=== PATIENT | female | born 1950 | race Caucasian/White ===

== ENCOUNTER 2016-07-01 10:38 | Emergency (ER) | payer OTHER, MEDICAID ==
[~2016-07-01] VITALS: Ht 167.6 cm; Wt 115.7 kg
[2016-07-01 10:56] VITALS: BP 177/78
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
--- NOTE | 2016-07-01 11:03 | NUR ---
XRAY AT BEDSIDE FOR RIGHT KNEE
[2016-07-01] MEDS ORDERED: oxyCODONE/APAP 5/325 MG 1 TAB TAB PO ONE (11:10)
[2016-07-01] MEDS ORDERED: ONDANSETRON 4 MG ODT PO ONE (11:10)
[2016-07-01] MEDS ORDERED: IBUPROFEN 600 MG TAB PO ONE (11:10)
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
--- NOTE | 2016-07-01 12:47 | NUR ---
Patient discharged with v/s stable. Written and verbal after care instructions given and explained. Patient alert, oriented and verbalized understanding of instructions. Ambulatory with steady gait. All questions addressed prior to discharge. ID band removed. Patient advised to follow up with PMD. Rx of NORCO given. Patient educated on indication of medication including possible reaction and side effects. Opportunity to ask questions provided and answered.ADVISED PT NOT TO BEAR WEIGHT ON AFFECTED KNEE UNTIL PAIN SUBSIDES.
[2016-07-01 12:49] VITALS: BP 142/70
== END 2016-07-01 12:47 | disposition home or self-care (01) ==
LOC: MED 10:40
DX: S83.91XA Sprain of unspecified site of right knee, initial encounter (principal); S43.402A Unspecified sprain of left shoulder joint, initial encounter; R55 Syncope and collapse; I10 Essential (primary) hypertension; Z88.2 Allergy status to sulfonamides; Z88.1 Allergy status to other antibiotic agents; W01.0XXA Fall on same level from slipping, tripping and stumbling without subsequent striking against object, initial encounter; Y93.01 Activity, walking, marching and hiking; Y92.512 Supermarket, store or market as the place of occurrence of the external cause; Y99.8 Other external cause status
CPT/HCPCS: 29505; 70450; 73030; 73562; 99284; S0119

== ENCOUNTER 2016-09-29 20:40 | Emergency (ER) | payer OTHER, MEDICAID ==
[~2016-09-29] VITALS: Ht 165.1 cm; Wt 119.1 kg
[2016-09-29 21:09] VITALS: BP 152/94
--- NOTE | 2016-09-29 21:36 | NUR ---
PT TAKEN TO CT FROM THE LOBBY
--- NOTE | 2016-09-29 21:52 | NUR ---
PT RETURN FROM CT TO THE LOBBY
--- NOTE | 2016-09-30 01:36 | NUR ---
PT TAKEN TO BED 4
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
[2016-09-30] MEDS ORDERED: HYDROmorphone 1 MG/ML AMP IVP ONE (03:20)
[2016-09-30] MEDS ORDERED: ONDANSETRON 4 MG/2 ML VIAL IVP ONE (03:20)
--- NOTE | 2016-09-30 05:30 | NUR ---
Patient discharged with v/s stable. Written and verbal after care instructions given and explained. Patient alert, oriented and verbalized understanding of instructions. Ambulatory with steady gait. All questions addressed prior to discharge. ID band removed. Patient advised to follow up with PMD. Rx of MOBIC AND NORCO given. Patient educated on indication of medication including possible reaction and side effects. Opportunity to ask questions provided and answered.
[2016-09-30 05:32] VITALS: BP 107/80
== END 2016-09-30 05:30 | disposition home or self-care (01) ==
LOC: MED 20:40
DX: S80.02XA Contusion of left knee, initial encounter (principal); S80.01XA Contusion of right knee, initial encounter; I10 Essential (primary) hypertension; Z88.1 Allergy status to other antibiotic agents; V49.49XA Driver injured in collision with other motor vehicles in traffic accident, initial encounter; Y93.I9 Activity, other involving external motion; Y92.488 Other paved roadways as the place of occurrence of the external cause; Y99.8 Other external cause status
CPT/HCPCS: 70450; 72125; 96374; 96375; 99284; J1170; J2405

== ENCOUNTER 2017-09-26 14:47 | Emergency (ER) | payer OTHER, MEDICAID ==
[~2017-09-26] VITALS: Ht 167.6 cm; Wt 108.9 kg
[2017-09-26 14:52] VITALS: BP 150/70
[2017-09-26] MEDS ORDERED: KETOROLAC 60 MG/2 ML VIAL IM ONE (16:55)
[2017-09-26 18:30] VITALS: BP 134/75
== END 2017-09-26 18:30 | disposition home or self-care (01) ==
LOC: MED 14:47
DX: S16.1XXA Strain of muscle, fascia and tendon at neck level, initial encounter (principal); M54.9 Dorsalgia, unspecified; I10 Essential (primary) hypertension; Z88.2 Allergy status to sulfonamides; Z88.8 Allergy status to other drugs, medicaments and biological substances; V49.49XA Driver injured in collision with other motor vehicles in traffic accident, initial encounter; Y93.89 Activity, other specified; Y92.89 Other specified places as the place of occurrence of the external cause; Y99.8 Other external cause status
CPT/HCPCS: 71046; 72040; 72100; 96372; 99284; J1885

== ENCOUNTER 2018-09-17 18:57 | Emergency (ER) | payer OTHER, MEDICAID ==
[~2018-09-17] VITALS: Ht 167.6 cm; Wt 116.8 kg
[2018-09-17 19:07] VITALS: BP 145/74
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
[2018-09-17] MEDS ORDERED: KETOROLAC 60 MG/2 ML VIAL IM ONE (20:25)
[2018-09-17 20:40] VITALS: BP 155/72
--- NOTE | 2018-09-17 20:41 | NUR ---
PT AWAKE, LYING IN BED. VSS AT THIS TIME. PER PT PAIN HAS DECREASED TO 5/10. WILL CONTINUE TO MONITOR.
--- NOTE | 2018-09-17 21:15 | NUR ---
PA WITH PT
--- NOTE | 2018-09-17 21:33 | NUR ---
Patient discharged with v/s stable. Written and verbal after care instructions given and explained. Patient alert, oriented and verbalized understanding of instructions. Ambulatory with steady gait. All questions addressed prior to discharge. ID band removed. Patient advised to follow up with PMD. Rx of Flerxiril and Naprosyn given. Patient educated on indication of medication including possible reaction and side effects. Opportunity to ask questions provided and answered.
== END 2018-09-17 21:33 | disposition home or self-care (01) ==
LOC: MED 18:57
DX: S16.1XXA Strain of muscle, fascia and tendon at neck level, initial encounter (principal); R51 Headache; I10 Essential (primary) hypertension; Z88.2 Allergy status to sulfonamides; Z88.1 Allergy status to other antibiotic agents; V89.2XXA Person injured in unspecified motor-vehicle accident, traffic, initial encounter; Y93.89 Activity, other specified; Y92.89 Other specified places as the place of occurrence of the external cause; Y99.8 Other external cause status
CPT/HCPCS: 96372; 99283; J1885